=== PATIENT | female | born 1930 | race Caucasian/White ===

== ENCOUNTER → 2016-02-29 | Outpatient (CLI) | payer MEDICARE ==
[~2016-02-29] MED LIST: /WARF25TA PO; ACET-654 PO; AMLO5TAB2 PO; ASPI325T OR; CALCIUM+VITD PO; CIPR500T3 PO; CLOP75TA2; DARV100T OR; FLAG500T PO; FLON0.05; FOSA70TA PO; ISOVUE-370 76% 100ML VIAL (Q9967) As Ordered ONE; LISI10TA4 OR; LOPR50TA OR; MAG400TA PO; MAGN400T5 PO; METO25TAB PO; PLAV75TA38 PO; SIMV5TAB4 PO; TRAM50TA2 PO; TYLE325T5 PO; VIT D PO; VITA100037 PO; VITA500T53 PO; ZOCO20TA OR; unknown antibiotic
--- NOTE | 2016-02-29 21:19 | REP ---
CTA of the abdomen and pelvis, 02/29/2016: Indication: Prior aortobi-iliac stent placement> Comparison: CT A of the abdomen and pelvis 02/08/2015, and CTA of the abdomen and pelvis 12/01/2014. Technique: Following dynamic IV contrast administration with 100 ml Isovue 370 mg/ml, 3 mm spiral axial sections performed through the abdomen and pelvis. Findings: Multiple scattered cysts are noted throughout the liver without change. The spleen is normal. Pancreatic duct is approximately 2 mm diameter within normal limits. The gallbladder is without stones. There is mild biliary dilatation, within normal limits for age, measuring 8 mm in diameter. There is fusiform abdominal aortic aneurysm with previous aortobi-iliac stent placement extending from the level of celiac artery through renal ostial arterial levels. The jena aortic aneurysm is 4.2 cm AP by 3.7 cm transverse dimension measured at superior endplate of L4 with distal tapering. The aortobi-iliac stent is patent. There is a stable appearance of stent, unchanged from 02/08/2015 . The common iliac stents are patent and intact. The internal and external iliac arteries are patent. The contour of the abdominal aortic aneurysm is stable. 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 Impression 1. Previous aortobi-iliac stent placement. The size of the jena abdominal aorta aortic aneurysm is decreased, now measuring 4.3 cm AP by 3.9 cm transverse, previously measuring 4.6 cm AP by 4.7 cm transverse on 02/08/2015 . 2. The appearance of the patent stents are stable and unchanged. Signed by Cristal Costa MD 03/01/2016 06:18 P
== END | disposition home or self-care (01) ==
LOC: M RAD 12:20
PROVIDERS: ATTEND Surgery
DX: I71.4 Abdominal aortic aneurysm, without rupture (principal); Z95.5 Presence of coronary angioplasty implant and graft
CPT/HCPCS: 74174; Q9967

== ENCOUNTER → 2016-03-19 | Outpatient (REF) | payer MEDICARE, OTHER ==
[~2016-03-19] MED LIST changes: -ISOVUE-370 76% 100ML VIAL (Q9967) As Ordered ONE
== END ==
LOC: M SFHCLERA 14:35
PROVIDERS: ATTEND Physician Assistant
DX: H53.9 Unspecified visual disturbance (principal)
CPT/HCPCS: 85652; G0463

== ENCOUNTER → 2016-11-02 | Outpatient (CLI) | payer MEDICARE, OTHER ==
[~2016-11-02] MED LIST changes: -ACET-654 PO; +ACET1TAB17 PO; +PLAV1TAB2 PO; -PLAV75TA38 PO; -VITA100037 PO; +VITA100067 PO
--- NOTE | 2016-11-02 10:53 | REP ---
Clinical: Left lower extremity pain and swelling . Technique: Forrest scale and color Doppler evaluation using linear high frequency transducer. Findings: Ultrasound examination of the left lower extremity deep venous structures from the common femoral vein to the popliteal vein demonstrates normal compressibility flow and wave patterns in response to respiration and augmentation. There is no evidence for deep venous thrombosis. Impression: No evidence for deep venous thrombosis. Signed by Oswaldo Prince MD 11/02/2016 10:44 A
== END ==
LOC: M RAD 09:48
PROVIDERS: ATTEND Physician Assistant
DX: M79.89 Other specified soft tissue disorders (principal)

== ENCOUNTER → 2017-01-12 | Outpatient (REF) | payer MEDICARE, OTHER ==
[2017-01-12 19:55] LABS: MEAN CORPUSCULAR HEMOGLOBIN 28.9 pg (27.0-33.0); MEAN CORPUSCULAR HGB CONC 31.3 g/dl (32.0-36.5); MEAN CORPUSCULAR VOLUME 92.3 fl (80.0-96.0); PLATELET COUNT, AUTOMATED 294 10^3/uL (150-450); RED CELL DISTRIBUTION WIDTH 15.6 % (11.5-14.5); WHITE BLOOD COUNT 9.4 10^3/uL (4.0-10.0)
[2017-01-12 20:00] LABS: ALBUMIN 3.8 GM/DL (3.2-5.2); ALBUMIN/GLOBULIN RATIO 1.06 (1.00-1.93); BILIRUBIN,TOTAL 0.4 MG/DL (0.2-1.0); CREATININE FOR GFR 1.11 MG/DL (0.55-1.02); GLOMERULAR FILTRATION RATE 49.9 (>32); POTASSIUM SERUM 4.5 MEQ/L (3.5-5.1); TOTAL PROTEIN 7.4 GM/DL (6.4-8.2)
== END ==
LOC: M SFHCLERA 13:48
PROVIDERS: ATTEND Physician Assistant
DX: Z00.00 Encounter for general adult medical examination without abnormal findings (principal); I10 Essential (primary) hypertension; E78.2 Mixed hyperlipidemia; M79.672 Pain in left foot

== ENCOUNTER → 2017-01-12 | Outpatient (CLI) | payer MEDICARE, OTHER ==
--- NOTE | 2017-01-12 14:34 | REP ---
Clinical: Pain. Technique: AP, lateral, bilateral oblique views of the left foot. Findings: Mild osteopenia and moderate hallux valgus deformity is appreciated along with degenerative changes at the first metatarsophalangeal and interphalangeal joint. Findings include subchondral sclerosis and joint space narrowing along with spurring along the medial margin of the distal phalanx. No acute fracture dislocation. 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 Signed by Oswaldo Prince MD 01/12/2017 02:26 P
== END ==
LOC: M LRY 13:55
PROVIDERS: ATTEND Physician Assistant
DX: M81.6 Localized osteoporosis [Lequesne] (principal); M20.12 Hallux valgus (acquired), left foot; M85.88 Other specified disorders of bone density and structure, other site; E78.2 Mixed hyperlipidemia; I10 Essential (primary) hypertension

== ENCOUNTER 2017-02-14 16:07 | Emergency (ER) | payer MEDICARE, OTHER ==
[~2017-02-14] VITALS: Ht 152.4 cm; Wt 47.7 kg
[2017-02-14] MEDS ORDERED: ACETAMINOPH W/CODEINE #3 TAB UD PO ONE (17:30)
[2017-02-14 17:32] VITALS: BP_DIAS 68
[2017-02-14] MEDS ORDERED: NORCOTAB PO (18:44)
[2017-02-14] MEDS ORDERED: DOXY100C37 PO (18:44)
[2017-02-14] MEDS ORDERED: NORCO 5/325MG TABLET (BULK FOR ED) PO ONE (18:45)
[2017-02-14 18:50] VITALS: BP_SYST 69
--- NOTE | 2017-02-15 07:35 | REP ---
REASON: Pain and swelling. TECHNIQUE: Multiple ultrasonographic images of the deep venous structures of the right thigh were obtained from the common femoral vein to the popliteal vein along with Doppler interrogation and color flow Doppler images. FINDINGS: There is no abnormal echogenic material seen within any of the visualized deep venous structures that would suggest acute thrombosis. Coaptation is unremarkable throughout. Doppler interrogation shows an expected response to respiratory variability and augmentation. The color flow images show what appears to be a normal vascular pattern throughout. IMPRESSION: There is no ultrasonographic evidence of deep venous thrombosis involving any of the visualized deep venous structures of the right thigh, as described above. Signed by Cam Cuellar DO 02/16/2017 01:53 P
== END 2017-02-14 18:58 | disposition home or self-care (01) ==
LOC: M ED 16:07
DX: L03.116 Cellulitis of left lower limb (principal); M54.42 Lumbago with sciatica, left side; Z79.899 Other long term (current) drug therapy; Z88.0 Allergy status to penicillin; Z88.6 Allergy status to analgesic agent; Z91.013 Allergy to seafood

== ENCOUNTER → 2017-03-09 | Outpatient (CLI) | payer MEDICARE | LOC: M RAD 16:45 | DX: I71.4 Abdominal aortic aneurysm, without rupture (principal); Z98.890 Other specified postprocedural states; Z86.79 Personal history of other diseases of the circulatory system | CPT/HCPCS: 74176 ==

== ENCOUNTER 2017-07-07 18:52 | Emergency (ER) | payer MEDICARE, OTHER ==
[2017-07-07 20:08] LABS: BASO % 0.3 % (0.0-1.0); EOS # 1.1 10^3/uL (0.0-0.50); HEMATOCRIT 37.1 % (36.0-47.0); IMMATURE GRANULOCYTE % 0.4 % (0-3.0); LYMPH # 0.9 10^3/uL (1.5-4.5); LYMPH % 9.1 % (24.0-44.0); MEAN CORPUSCULAR HEMOGLOBIN 29.6 pg (27.0-33.0); MEAN CORPUSCULAR HGB CONC 32.3 g/dl (32.0-36.5); MEAN CORPUSCULAR VOLUME 91.4 fl (80.0-96.0); MONO # 0.4 10^3/uL (0.0-0.8); MONO % 4.2 % (0.0-5.0); NEUTROPHILS # 7.4 10^3/uL (1.8-7.7); PLATELET COUNT, AUTOMATED 154 10^3/uL (150-450); RED BLOOD COUNT 4.06 10^6/uL (4.00-5.40); RED CELL DISTRIBUTION WIDTH 15.7 % (11.5-14.5); WHITE BLOOD COUNT 9.9 10^3/uL (4.0-10.0)
[2017-07-07 20:11] LABS: INR 0.98; PROTHROMBIN TIME 13.1 SECONDS (12.4-14.5)
[2017-07-07 20:12] LABS: PARTIAL THROMBOPLASTIN TIME 31.1 SECONDS (26.8-37.9)
[2017-07-07 20:19] LABS: ALBUMIN 3.9 GM/DL (3.2-5.2); ALBUMIN/GLOBULIN RATIO 1.03 (1.00-1.93); ALKALINE PHOSPHATASE 111 U/L (45-117); ALT/SGPT 47 U/L (12-78); ANION GAP 6 MEQ/L (8-16); AST/SGOT 70 U/L (7-37); BILIRUBIN,DIRECT 0.1 MG/DL (0.0-0.2); BILIRUBIN,TOTAL 0.4 MG/DL (0.2-1.0); BLOOD UREA NITROGEN 28 MG/DL (7-18); CALCIUM LEVEL 8.5 MG/DL (8.8-10.2); CARBON DIOXIDE LEVEL 25 MEQ/L (21-32); CHLORIDE LEVEL 109 MEQ/L (98-107); CREATININE FOR GFR 1.51 MG/DL (0.55-1.30); GLUCOSE, FASTING 129 MG/DL (70-100); LIPASE 379 U/L (73-393); POTASSIUM SERUM 4.5 MEQ/L (3.5-5.1); SODIUM LEVEL 140 MEQ/L (136-145); TOTAL PROTEIN 7.7 GM/DL (6.4-8.2)
[2017-07-07] MEDS: ACETAMINOPHEN 325 MG TAB PO (20:51)
== END 2017-07-07 21:19 | disposition left against medical advice (07) ==
LOC: M ED 18:52
DX: R19.7 Diarrhea, unspecified (principal); M54.9 Dorsalgia, unspecified; G89.29 Other chronic pain; E78.5 Hyperlipidemia, unspecified; M81.0 Age-related osteoporosis without current pathological fracture; N28.9 Disorder of kidney and ureter, unspecified; F17.200 Nicotine dependence, unspecified, uncomplicated; Z91.013 Allergy to seafood; Z88.8 Allergy status to other drugs, medicaments and biological substances; Z88.0 Allergy status to penicillin; Z79.899 Other long term (current) drug therapy
CPT/HCPCS: 83690

== ENCOUNTER → 2017-07-27 | Outpatient (CLI) | payer OTHER | LOC: M PAIN 11:30 | DX: M51.16 Intervertebral disc disorders with radiculopathy, lumbar region (principal); M51.17 Intervertebral disc disorders with radiculopathy, lumbosacral region; M48.061 Spinal stenosis, lumbar region without neurogenic claudication; G89.29 Other chronic pain; N18.9 Chronic kidney disease, unspecified; I12.9 Hypertensive chronic kidney disease with stage 1 through stage 4 chronic kidney disease, or unspecified chronic kidney disease; E78.5 Hyperlipidemia, unspecified; E78.2 Mixed hyperlipidemia; F17.210 Nicotine dependence, cigarettes, uncomplicated; Z79.82 Long term (current) use of aspirin; Z79.891 Long term (current) use of opiate analgesic; Z79.899 Other long term (current) drug therapy; Z88.0 Allergy status to penicillin; Z88.8 Allergy status to other drugs, medicaments and biological substances; Z91.013 Allergy to seafood; Z86.73 Personal history of transient ischemic attack (TIA), and cerebral infarction without residual deficits | CPT/HCPCS: G0463 ==

== ENCOUNTER → 2017-08-14 | Outpatient (REF) | payer MEDICARE ==
[2017-08-14 17:38] LABS: ALBUMIN/GLOBULIN RATIO 1.11 (1.00-1.93); ALKALINE PHOSPHATASE 83 U/L (45-117); ALT/SGPT 25 U/L (12-78); ANION GAP 9 MEQ/L (8-16); AST/SGOT 49 U/L (7-37); BILIRUBIN,TOTAL 0.4 MG/DL (0.2-1.0); BLOOD UREA NITROGEN 30 MG/DL (7-18); CALCIUM LEVEL 8.5 MG/DL (8.8-10.2); CARBON DIOXIDE LEVEL 24 MEQ/L (21-32); CHLORIDE LEVEL 108 MEQ/L (98-107); CREATININE FOR GFR 1.48 MG/DL (0.55-1.30); GLOMERULAR FILTRATION RATE 35.8 (>32); GLUCOSE, FASTING 109 MG/DL (70-100); POTASSIUM SERUM 4.5 MEQ/L (3.5-5.1); SODIUM LEVEL 141 MEQ/L (136-145); TOTAL PROTEIN 7.6 GM/DL (6.4-8.2)
== END ==
LOC: M SFHCLERA 13:56
DX: M54.42 Lumbago with sciatica, left side (principal)
CPT/HCPCS: 80053

== ENCOUNTER → 2017-09-07 | Outpatient (REF) | payer MEDICARE ==
[2017-09-07 17:03] LABS: ALBUMIN/GLOBULIN RATIO 1.18 (1.00-1.93); ALKALINE PHOSPHATASE 78 U/L (45-117); ALT/SGPT 29 U/L (12-78); ANION GAP 9 MEQ/L (8-16); AST/SGOT 47 U/L (7-37); BILIRUBIN,TOTAL 0.4 MG/DL (0.2-1.0); BLOOD UREA NITROGEN 27 MG/DL (7-18); CALCIUM LEVEL 8.6 MG/DL (8.8-10.2); CARBON DIOXIDE LEVEL 24 MEQ/L (21-32); CHLORIDE LEVEL 108 MEQ/L (98-107); CREATININE FOR GFR 1.16 MG/DL (0.55-1.30); GLOMERULAR FILTRATION RATE 47.4 (>32); GLUCOSE, FASTING 86 MG/DL (70-100); POTASSIUM SERUM 4.6 MEQ/L (3.5-5.1); SODIUM LEVEL 141 MEQ/L (136-145); TOTAL PROTEIN 7.4 GM/DL (6.4-8.2)
== END ==
LOC: M SFHCLERA 11:43
DX: M54.42 Lumbago with sciatica, left side (principal)
CPT/HCPCS: 80053

== ENCOUNTER → 2017-10-17 | Outpatient (CLI) | payer MEDICARE | LOC: M WHC 14:21 | DX: M81.0 Age-related osteoporosis without current pathological fracture (principal); M85.88 Other specified disorders of bone density and structure, other site | CPT/HCPCS: 77080 ==